=== PATIENT | female | born 1970 | race African-American/Black ===

== ENCOUNTER 2016-11-12 05:01 | Emergency (ER) | payer SELFPAY ==
[~2016-11-12] VITALS: Ht 160 cm; Wt 65.0 kg
[~2016-11-12 05:01] MED LIST: KCL20 PO; LEVEMIR SQ; PIOG45 PO
[2016-11-12 05:03] VITALS: BP 132/68; PULSE 94; RESP 18; TEMP 98.7; O2SAT 100
--- NOTE | 2016-11-12 05:26 | PD ---
HPI Chief Complaint: Flank/Kidney Pain Time Seen by Provider: 05:13 Travel History International Travel<30 days: No Contact w/Intl Traveler<30days: No Traveled to known affect area: No History of Present Illness HPI 46-year-old female came to the emergency room with history of left sided abdominal pain. She points all the way from the left upper quadrant going down to the left lower quadrant as her area of pain. She says it's been going on for past 4 days. No h/o nausea and vomiting. No history of fever or chills. She also complains of some hematuria. She is a had pain like this in the past. No history of kidney stones in the past. She says that she tried to tough it out but this pain is just not going away. Vital signs were otherwise stable. Patient is a diabetic. [facility] Past Medical History Narrative Medical List of his past medical, surgical, social and family history was reviewed from the nursing note. Hx Anticoagulant Therapy: No Asthma: No Blood Disorders: No Anxiety: No Depression: No Heart Rhythm Problems: No Cancer: No Cardiovascular Problems: No High Cholesterol: No Chemotherapy: No Chest Pain: No Congestive Heart Failure: No COPD: No Cerebrovascular Accident: No Diabetes: Yes Patient Takes Glucophage: No Diminished Hearing: No Endocrine: Yes Immune Disorder: No Musculoskeletal: No Neurologic: No Psychiatric: No Reproductive: No Respiratory: Yes (CHRONIC BRONCHITIS) Thyroid Disease: No ?: Not : 1 Para: 1 Past Surgical History Hysterectomy: No Social History Alcohol Use: No Tobacco Use: Yes (2 PPD) Substance Use: No Allergies-Medications (Allergen,Severity, Reaction): Coded Allergies: No Known Allergies (Verified , 11/12/16) Comments No known drug allergies. Reported Meds & Prescriptions Reported Meds & Active Scripts Active Levemir Inj (Insulin Detemir) 1,000 unit/ 10 ML Vial 10 Units SQ HS Do not mix with any other Insulin. Proair Hfa 8.5 GM Inh (Albuterol Sulfate) 90 Mcg/Act Aer 2 Puff INH Q4-6H PRN 108 mcg/actuation Cipro (Ciprofloxacin HCl) 500 Mg Tab 500 Mg PO BID Narrative Medication List of her home medications reviewed from the nursing note. Review of Systems Except as stated in HPI: all other systems reviewed are Neg Physical Exam Narrative GENERAL: Awake, alert, moderate distress SKIN: Focused skin assessment warm/dry. HEAD: Atraumatic. Normocephalic. EYES: Pupils equal and round. No scleral icterus. No injection or drainage. ENT: No nasal bleeding or discharge. Mucous membranes pink and moist. NECK: Trachea midline. No JVD. CARDIOVASCULAR: Regular rate and rhythm. No murmur appreciated. RESPIRATORY: No accessory muscle use. Clear to auscultation. Breath sounds equal bilaterally. GASTROINTESTINAL: Abdomen soft, non-tender, nondistended. Hepatic and splenic margins not palpable. MUSCULOSKELETAL: No obvious deformities. No clubbing. No cyanosis. No edema. NEUROLOGICAL: Awake and alert. No obvious cranial nerve deficits. Motor grossly within normal limits. Normal speech. PSYCHIATRIC: Appropriate mood and affect; insight and judgment normal. Data Data Last Documented VS Orders Urinalysis - C+S If Indicated (11/12/16 05:21) Ed Urine Pregnancytest Poc (11/12/16 05:21) Complete Blood Count With Diff (11/12/16 05:30) Comprehensive Metabolic Panel (11/12/16 05:30) Ct Abd/Pel W/O Iv Contrast (11/12/16 05:30) Iv Access Insert/Monitor (11/12/16 05:30) Ecg Monitoring (11/12/16 05:30) Oximetry (11/12/16 05:30) Sodium Chlor 0.9% 1000 Ml Inj (Ns 1000 M (11/12/16 05:30) Sodium Chloride 0.9% Flush (Ns Flush) (11/12/16 05:30) Morphine Inj (Morphine Inj) (11/12/16 05:30) Ondansetron Inj (Zofran Inj) (11/12/16 05:30) Urine Culture (11/12/16 06:36) Levofloxacin (Levaquin) (11/12/16 07:45) Insulin Human Regular Inj (Novolin R Inj (11/12/16 07:45) Labs Laboratory Tests Test 11/12/16 06:36 Urine Color LIGHT-YELLOW Urine Turbidity HAZY Urine pH 6.0 Urine Specific [place] 1.016 Urine Protein TRACE mg/dL Urine Glucose (UA) 1000 mg/dL Urine Ketones TRACE mg/dL Urine Occult Blood MOD Urine Nitrite POS Urine Bilirubin NEG Urine Urobilinogen LESS THAN 2.0 MG/DL Urine Leukocyte Esterase LARGE Urine RBC 30 /hpf Urine WBC /hpf Urine WBC Clumps OCC Urine Bacteria MANY /hpf Microscopic Urinalysis Comment CULTURE INDICATED MDM Medical Decision Making Medical Screen Exam Complete: Yes Emergency Medical Condition: Yes Medical Record Reviewed: Yes Differential Diagnosis Ureteral colic, vital nephritis, diverticulitis, musculoskeletal pain Narrative Course 7 AM blood test results came back and they're within normal limit. Patient was medicated for pain. She is awaiting for a CAT scan to be done and resulted. Case was signed over to the oncoming ER physician. Procedures EKG Prior to Arrival: No Scripts Insulin Detemir Inj (Levemir Inj)1,000 unit/ 10 ML Vial10 Units SQ HS #10 VIAL Ref 0 Do not mix with any other Insulin. Prov:Jovanni Gavin MD 11/12/16 Albuterol 8.5 GM Inh (Proair Hfa 8.5 GM Inh)90 Mcg/Act Aer2 Puff INH Q4-6H PRN ( SHORTNESS OF BREATH) #1 INHALER 108 mcg/actuation Prov:Jovanni Gavin MD 11/12/16 Ciprofloxacin (Cipro)500 Mg [id number] Mg PO BID #20 TAB Ref 0 Prov:Jovanni Gavin MD 11/12/16 Yuval Bruno MD Nov 12, 2016 05:26 Blood Urea Nitrogen 18 MG/DL Creatinine 0.76 MG/DL Estimat Glomerular Filtration 100 ML/MIN Rate Random Glucose 308 MG/DL Calcium Level 8.8 MG/DL Total Bilirubin 0.4 MG/DL Aspartate Amino Transf 17 U/L (AST/SGOT) Alanine Aminotransferase 21 U/L (ALT/SGPT) Alkaline Phosphatase 95 U/L Total Protein 7.0 GM/DL Albumin 2.9 GM/DL Urine Color LIGHT-YELLOW Urine Turbidity HAZY Urine pH 6.0 Urine Specific [place] 1.016 Urine Protein TRACE mg/dL Urine Glucose (UA) 1000 mg/dL Urine Ketones TRACE mg/dL Urine Occult Blood MOD Urine Nitrite POS Urine Bilirubin NEG Urine Urobilinogen LESS THAN 2.0 MG/DL Urine Leukocyte Esterase LARGE Urine RBC 30 /hpf Urine WBC /hpf Urine WBC Clumps OCC Urine Bacteria MANY /hpf Microscopic Urinalysis Comment CULTURE INDICATED MDM Medical Decision Making Medical Screen Exam Complete: Yes Emergency Medical Condition: Yes Medical Record Reviewed: Yes Differential Diagnosis Ureteral colic, vital nephritis, diverticulitis, musculoskeletal pain Narrative Course 7 AM blood test results came back and they're within normal limit. Patient was medicated for pain. She is awaiting for a CAT scan to be done and resulted. Case was signed over to the oncoming ER physician. Procedures EKG Prior to Arrival: No Scripts Insulin Detemir Inj (Levemir Inj)1,000 unit/ 10 ML Vial10 Units SQ HS #10 VIAL Ref 0 Do not mix with any other Insulin. Prov:Jovanni Gavin MD 11/12/16 Albuterol 8.5 GM Inh (Proair Hfa 8.5 GM Inh)90 Mcg/Act Aer2 Puff INH Q4-6H PRN ( SHORTNESS OF BREATH) #1 INHALER 108 mcg/actuation Prov:Jovanni Gavin MD 11/12/16 Ciprofloxacin (Cipro)500 Mg [id number] Mg PO BID #20 TAB Ref 0 Prov:Jovanni Gavin MD 11/12/16 Yuval Bruno MD Nov 12, 2016 05:26
[2016-11-12] MEDS ORDERED: ONDANSETRON HCL 4 MG/2 ML VIAL IV PUSH ONE (05:30)
[2016-11-12] MEDS ORDERED: MORPHINE SULFATE 4 MG/ML INJ IV PUSH ONE (05:30)
[2016-11-12] MEDS ORDERED: SODIUM CHLOR 0.9% 1000 ML INJ 1,000 ML IV SCH (05:30)
[2016-11-12] MEDS ORDERED: SODIUM CHLORIDE 0.9% FLUSH 10 ML FLUSH IV FLUSH PRN (05:30)
[2016-11-12 05:50] LABS: BASOPHIL # 0.1 TH/MM3 (0-0.2); BASOPHIL % 0.7 % (0.0-2.0); EOSINOPHIL # 0.1 TH/MM3 (0-0.4); EOSINOPHIL % 0.9 % (0.0-4.0); HEMATOCRIT 39.1 % (35.0-46.0); HEMO FLAGS DIFF FINAL; LYMPH % 27.4 % (9.0-44.0); MEAN CELL VOLUME 88.4 FL (80.0-100.0); MEAN CORPUSCULAR HEMOGLOBIN 31.6 PG (27.0-34.0); MEAN CORPUSCULAR HGB CONC 35.8 % (32.0-36.0); MONO % 6.4 % (0.0-8.0); NEUT % 64.6 % (16.0-70.0); PLATELET COUNT 332 TH/MM3 (150-450); RED BLOOD COUNT 4.42 MIL/MM3 (4.00-5.30); RED CELL DISTRIBUTION WIDTH 12.7 % (11.6-17.2); WHITE BLOOD COUNT 10.9 TH/MM3 (4.0-11.0)
[2016-11-12 06:09] LABS: ALKALINE PHOSPHATASE 95 U/L (45-117); TOTAL BILIRUBIN ADULT 0.4 MG/DL (0.2-1.0)
[2016-11-12 06:11] LABS: ALT (GPT) 21 U/L (10-53); ANION GAP 8 MEQ/L (5-15); AST (GOT) 17 U/L (15-37); BICARBONATE 25.4 MEQ/L (21.0-32.0); BLOOD UREA NITROGEN 18 MG/DL (7-18); CHLORIDE 102 MEQ/L (98-107); GLOMERULAR FILTRATION RATE 100 ML/MIN (>89); SODIUM (NA) 135 MEQ/L (136-145)
[2016-11-12 06:12] LABS: POTASSIUM 4.6 MEQ/L (3.5-5.1)
[2016-11-12 06:45] VITALS: O2SAT 98
[2016-11-12 07:11] LABS: BACTERIA, URINE MANY /hpf; BLOOD, URINE MOD (NEG); COMMENT (UR) CULTURE INDICATED; CULTURE IF INDICATED CULTURE INDICATED; GLUCOSE,URINE 1000 mg/dL (NEG); KETONE, URINE TRACE mg/dL (NEG); URINE COLOR LIGHT-YELLOW (YELLW/STRAW)
[2016-11-12 07:13] LABS: NITRITE,URINE POS (NEG)
--- NOTE | 2016-11-12 07:14 | RADRPT ---
EXAM DATE/TIME: 11/12/2016 06:49 [facility] COMPARISON: No previous studies available for comparison. INDICATIONS : Left side abdominal pain. ORAL CONTRAST: No oral contrast ingested. RADIATION DOSE: 9.96 CTDIvol (mGy) MEDICAL HISTORY : Diabetes. SURGICAL HISTORY : None. ENCOUNTER: Initial ACUITY: 4 - 6 days PAIN SCALE: 10/10 LOCATION: Left abdomen. TECHNIQUE: Volumetric scanning of the abdomen and pelvis was performed. Using automated exposure control and ad justment of the mA and/or kV according to patient size, radiation dose was kept as low as reasonably achievable to obtain optimal diagnostic quality images. DICOM format image data is available electro nically for review and comparison. The lack of IV contrast limits the diagnosis for certain organ pa thology. FINDINGS: LOWER LUNGS: The visualized lower lungs are clear. LIVER: Homogeneous density without lesion. There is no dilation of the biliary tree. No calcified gallston es. SPLEEN: Normal size without lesion. PANCREAS: Within normal limits. KIDNEYS: Normal in size and shape. There is some mild prominence of the left collecting system compared to the right. However, no definite mechanical obstruction is seen. No calcified left renal stones are seen. The right kidney is unremarkable. There is no evidence of hydronephrosis. The ureters are nondilated .. ADRENAL GLANDS: Within normal limits. VASCULAR: There is no aortic aneurysm. BOWEL/MESENTERY: The stomach, small bowel, and colon demonstrate no acute abnormality. There is no free intraperitone al air or fluid. The appendix is unremarkable. There is no inflammatory changes. There is stool in th e colon. ABDOMINAL WALL: Within normal limits. RETROPERITONEUM: There is no lymphadenopathy. BLADDER: No wall thickening or mass. REPRODUCTIVE: Uterus is mildly prominent. There appears to be 1.5 cm cyst associated with the right ovary. No free fluid is seen in the cul-de-sac. INGUINAL: There is no lymphadenopathy or hernia. MUSCULOSKELETAL: Within normal limits for patient age. CONCLUSION: 1. No evidence of calcified renal stones or hydronephrosis. There is some mild prominence of the left upper collecting system compared to the right. This is nonspecific. 2. Small 1.5 cm cyst associated with the right ovary. No free fluid in the cul-de-sac.. 3. Otherwise, unremarkable exam for patient's age. Todd Rowan MD on November 12, 2016 at 7:03 Board Certified Radiologist. This report was verified electronically.
[2016-11-12] MEDS ORDERED: ALBUAER3 INH (07:35)
[2016-11-12] MEDS ORDERED: CIPR-9 PO (07:35)
[2016-11-12] MEDS ORDERED: LEVEMIR SQ (07:36)
--- NOTE | 2016-11-12 07:36 | PD ---
Physical Exam Narrative Patient was seen by ED physician and signed out to me. Patient has history of hypertension, diabetes, asthma. Patient states that she ran out of all medications for the past few months. Data Data Last Documented VS Vital Signs Date Time Temp Pulse Resp B/P Pulse Ox O2 Delivery O2 Flow Rate FiO2 11/12/16 06:45 98 Room Air 11/12/16 05:06 18 11/12/16 05:03 98.7 94 132/68 Orders Urinalysis - C+S If Indicated (11/12/16 05:21) Ed Urine Pregnancytest Poc (11/12/16 05:21) Complete Blood Count With Diff (11/12/16 05:30) Comprehensive Metabolic Panel (11/12/16 05:30) Ct Abd/Pel W/O Iv Contrast (11/12/16 05:30) Iv Access Insert/Monitor (11/12/16 05:30) Ecg Monitoring (11/12/16 05:30) Oximetry (11/12/16 05:30) Sodium Chlor 0.9% 1000 Ml Inj (Ns 1000 M (11/12/16 05:30) Sodium Chloride 0.9% Flush (Ns Flush) (11/12/16 05:30) Morphine Inj (Morphine Inj) (11/12/16 05:30) Ondansetron Inj (Zofran Inj) (11/12/16 05:30) Urine Culture (11/12/16 06:36) Labs Laboratory Tests Test 11/12/16 11/12/16 05:39 06:36 White Blood Count 10.9 TH/MM3 Red Blood Count 4.42 MIL/MM3 Hemoglobin 14.0 GM/DL Hematocrit 39.1 % Mean Corpuscular Volume 88.4 FL Mean Corpuscular Hemoglobin 31.6 PG Mean Corpuscular Hemoglobin 35.8 % Concent Red Cell Distribution Width 12.7 % Platelet Count 332 TH/MM3 Mean Platelet Volume 8.2 FL Neutrophils (%) (Auto) 64.6 % Lymphocytes (%) (Auto) 27.4 % Monocytes (%) (Auto) 6.4 % Eosinophils (%) (Auto) 0.9 % Basophils (%) (Auto) 0.7 % Neutrophils # (Auto) 7.0 TH/MM3 Lymphocytes # (Auto) 3.0 TH/MM3 Monocytes # (Auto) 0.7 TH/MM3 Eosinophils # (Auto) 0.1 TH/MM3 Basophils # (Auto) 0.1 TH/MM3 CBC Comment DIFF FINAL Differential Comment Sodium Level 135 MEQ/L Potassium Level 4.6 MEQ/L Chloride Level 102 MEQ/L Carbon Dioxide Level 25.4 MEQ/L Anion Gap 8 MEQ/L Blood Urea Nitrogen 18 MG/DL Creatinine 0.76 MG/DL Estimat Glomerular Filtration 100 ML/MIN Rate Random Glucose 308 MG/DL Calcium Level 8.8 MG/DL Total Bilirubin 0.4 MG/DL Aspartate Amino Transf 17 U/L (AST/SGOT) Alanine Aminotransferase 21 U/L (ALT/SGPT) Alkaline Phosphatase 95 U/L Total Protein 7.0 GM/DL Albumin 2.9 GM/DL Urine Color LIGHT-YELLOW Urine Turbidity HAZY Urine pH 6.0 Urine Specific [place] 1.016 Urine Protein TRACE mg/dL Urine Glucose (UA) 1000 mg/dL Urine Ketones TRACE mg/dL Urine Occult Blood MOD Urine Nitrite POS Urine Bilirubin NEG Urine Urobilinogen LESS THAN 2.0 MG/DL Urine Leukocyte Esterase LARGE Urine RBC 30 /hpf Urine WBC /hpf Urine WBC Clumps OCC Urine Bacteria MANY /hpf Microscopic Urinalysis Comment CULTURE INDICATED MDM Supervised Visit with SARITA: No Interpretation(s) Last Impressions Abdomen/Pelvis CT 11/12/16 0530 Signed Impressions: Service Date/Time: Saturday, November 12, 2016 06:49 - CONCLUSION: 1. No evidence of calcified renal stones or hydronephrosis. There is some mild prominence of the left upper collecting system compared to the right. This is nonspecific. 2. Small 1.5 cm cyst associated with the right ovary. No free fluid in the cul-de-sac.. 3. Otherwise, unremarkable exam for patient's age. Todd Rowan MD 7:25 AM. CBC within normal limit. CMP within normal limit. UA positive for WBC and bacteria. Narrative Course Patient was seen by ED physician and signed out to me. Patient has pyelonephritis. Patient ran out of her medications for hypertension, diabetes, asthma. Patient has hyperglycemia today. Novolin R 5 units subcutaneous given. Levaquin 750 mg by mouth given. Diagnosis Primary Impression: Pyelonephritis Additional Impression: Hyperglycemia Patient Instructions: General Instructions Additional Instruction: Advised patient to continue blood sugar checked and blood pressure check at home. Take medications as directed. Follow-up with local physician. Return if persistent problem or worse. Med/Other Pt SpecificInfo: Prescription(s) given Scripts Insulin Detemir Inj (Levemir Inj)1,000 unit/ 10 ML Vial10 Units SQ HS #10 VIAL Ref 0 Do not mix with any other Insulin. Prov:Jovanni Gavin MD 11/12/16 Albuterol 8.5 GM Inh (Proair Hfa 8.5 GM Inh)90 Mcg/Act Aer2 Puff INH Q4-6H PRN ( SHORTNESS OF BREATH) #1 INHALER 108 mcg/actuation Prov:Jovanni Gavin MD 11/12/16 Ciprofloxacin (Cipro)500 Mg Kas893 Mg PO BID #20 TAB Ref 0 Prov:Jovanni Gavin MD 11/12/16 Disposition: 01 DISCHARGE HOME Condition: Stable Jovanni Gavin MD Nov 12, 2016 07:36
[2016-11-12] MEDS ORDERED: LEVOFLOXACIN 750 MG TAB PO ONE (07:45)
[2016-11-12] MEDS ORDERED: INSULIN HUMAN REGULAR 1,000 UNITS/10 ML VIAL SQ ONE (07:45)
== END 2016-11-12 08:04 | disposition home or self-care (01) ==
LOC: NEPE 05:01
DX: N12 Tubulo-interstitial nephritis, not specified as acute or chronic (principal); B96.20 Unspecified Escherichia coli [E. coli] as the cause of diseases classified elsewhere; E11.65 Type 2 diabetes mellitus with hyperglycemia; R31.9 Hematuria, unspecified; F17.200 Nicotine dependence, unspecified, uncomplicated; Z79.4 Long term (current) use of insulin; Z87.09 Personal history of other diseases of the respiratory system
CPT/HCPCS: 74176; 80053; 81001; 84703; 85025; 87077; 87086; 87186; 96372; 96374; 99285; J1815; J2270; J2405; J7030

== ENCOUNTER 2016-12-22 06:39 | Emergency (ER) | payer SELFPAY ==
[~2016-12-22] VITALS: Ht 160 cm; Wt 65.0 kg
[~2016-12-22 06:39] MED LIST changes: +ALBUAER3 INH; +CIPR-9 PO; -KCL20 PO; -PIOG45 PO
[2016-12-22 06:42] VITALS: BP 135/73; PULSE 106; RESP 18; TEMP 99.5; O2SAT 97
[2016-12-22 07:00] VITALS: O2SAT 100
--- NOTE | 2016-12-22 07:21 | PD ---
HPI Chief Complaint: Fever Time Seen by Provider: 07:02 Travel History International Travel<30 days: No Contact w/Intl Traveler<30days: No Traveled to known affect area: No History of Present Illness HPI 46-year-old female came to the emergency room with history of cough, headache, chest pain and abdominal pain every time she coughs hard for past 5 days. Patient has history of diabetes and COPD. She is a smoker. She has not been using her inhaler for the cough. She was vomiting in the beginning of her sickness but her last vomiting was 2 days ago. No history of diarrhea. She had a temperature of 99.5 and slightly tachycardic. No known sick contacts. The chest pain and abdominal pain are only there when she coughs hard. PFSH Past Medical History Narrative Medical List of her past medical, surgical, social and family history was reviewed from the nursing note. Hx Anticoagulant Therapy: No Asthma: Yes Blood Disorders: No Anxiety: No Depression: No Heart Rhythm Problems: No Cancer: No Cardiovascular Problems: No High Cholesterol: No Chemotherapy: No Chest Pain: No Congestive Heart Failure: No COPD: No Cerebrovascular Accident: No Diabetes: Yes Patient Takes Glucophage: No Diminished Hearing: No Endocrine: Yes Immune Disorder: No Musculoskeletal: No Neurologic: No Psychiatric: No Reproductive: No Respiratory: Yes (CHRONIC BRONCHITIS) Thyroid Disease: No Tetanus Vaccination: > 5 Years Influenza Vaccination: Yes ?: Not LMP: 11/24/16 : 1 Para: 1 Past Surgical History Surgical History: No Previous Surgery Hysterectomy: No Social History Alcohol Use: Yes (OCCASSIONALLY) Tobacco Use: Yes (OCCASSIONALLY) Substance Use: No Allergies-Medications (Allergen,Severity, Reaction): Coded Allergies: No Known Allergies (Verified , 12/22/16) Comments No known allergies Reported Meds & Prescriptions Reported Meds & Active Scripts Active Cipro (Ciprofloxacin HCl) 500 Mg Tab 500 Mg PO BID Macrobid (Nitrofurantoin Monoh/Nitrofur Macro) 100 Mg Cap 100 Mg PO BID 7 Days Ventolin Hfa 18 GM Inh (Albuterol Sulfate) 90 Mcg/Act Aer 2 Puff INH Q4-6H PRN Narrative Medication List of her past medical, surgical, social and family history was reviewed from the nursing note. Review of Systems Except as stated in HPI: all other systems reviewed are Neg Physical Exam Narrative GENERAL: Awake, alert, moderate distress SKIN: Focused skin assessment warm/dry. HEAD: Atraumatic. Normocephalic. EYES: Pupils equal and round. No scleral icterus. No injection or drainage. ENT: No nasal bleeding or discharge. Mucous membranes pink and moist. NECK: Trachea midline. No JVD. CARDIOVASCULAR: Regular rate and rhythm. No murmur appreciated. RESPIRATORY: Coarse breath sounds bilaterally with expiratory wheeze GASTROINTESTINAL: Abdomen soft, non-tender, nondistended. Hepatic and splenic margins not palpable. MUSCULOSKELETAL: No obvious deformities. No clubbing. No cyanosis. No edema. NEUROLOGICAL: Awake and alert. No obvious cranial nerve deficits. Motor grossly within normal limits. Normal speech. PSYCHIATRIC: Appropriate mood and affect; insight and judgment normal. Data Data Last Documented VS Vital Signs Date Time Temp Pulse Resp B/P Pulse Ox O2 Delivery O2 Flow Rate FiO2 12/22/16 07:00 100 Room Air 12/22/16 06:42 99.5 106 18 135/73 Orders Complete Blood Count With Diff (12/22/16 07:23) Comprehensive Metabolic Panel (12/22/16 07:23) Lactic Acid Sepsis Protocol (12/22/16 07:23) Urinalysis - C+S If Indicated (12/22/16 07:23) Blood Culture (12/22/16 07:23) Chest, Single Ap (12/22/16 07:23) Blood Glucose (12/22/16 07:23) Ecg Monitoring (12/22/16 07:23) Iv Access Insert/Monitor (12/22/16 07:23) Oximetry (12/22/16 07:23) Oxygen Administration (12/22/16 07:23) Sodium Chlor 0.9% 1000 Ml Inj (Ns 1000 M (12/22/16 07:23) Sodium Chlor 0.9% 1000 Ml Inj (Ns 1000 M (12/22/16 07:23) Sodium Chlor 0.9% 1000 Ml Inj (Ns 1000 M (12/22/16 07:23) Albuterol-Ipratropium Neb (Duoneb Neb) (12/22/16 07:30) Ketorolac Inj (Toradol Inj) (12/22/16 07:30) Urine Culture (12/22/16 08:50) Labs Laboratory Tests Test 12/22/16 12/22/16 07:40 08:50 White Blood Count 7.5 TH/MM3 Red Blood Count 4.22 MIL/MM3 Hemoglobin 12.7 GM/DL Hematocrit 37.6 % Mean Corpuscular Volume 89.1 FL Mean Corpuscular Hemoglobin 30.1 PG Mean Corpuscular Hemoglobin 33.8 % Concent Red Cell Distribution Width 12.7 % Platelet Count 231 TH/MM3 Mean Platelet Volume 8.4 FL Neutrophils (%) (Auto) 71.0 % Lymphocytes (%) (Auto) 22.0 % Monocytes (%) (Auto) 6.6 % Eosinophils (%) (Auto) 0.1 % Basophils (%) (Auto) 0.3 % Neutrophils # (Auto) 5.3 TH/MM3 Lymphocytes # (Auto) 1.7 TH/MM3 Monocytes # (Auto) 0.5 TH/MM3 Eosinophils # (Auto) 0.0 TH/MM3 Basophils # (Auto) 0.0 TH/MM3 CBC Comment DIFF FINAL Differential Comment Sodium Level 133 MEQ/L Potassium Level 3.6 MEQ/L Chloride Level 98 MEQ/L Carbon Dioxide Level 23.6 MEQ/L Anion Gap 11 MEQ/L Blood Urea Nitrogen 8 MG/DL Creatinine 0.67 MG/DL Estimat Glomerular Filtration 115 ML/MIN Rate Random Glucose 303 MG/DL Lactic Acid Level 0.9 mmol/L Calcium Level 7.8 MG/DL Total Bilirubin 0.4 MG/DL Aspartate Amino Transf 12 U/L (AST/SGOT) Alanine Aminotransferase 18 U/L (ALT/SGPT) Alkaline Phosphatase 76 U/L Total Protein 6.5 GM/DL Albumin 2.7 GM/DL Urine Color LIGHT-YELLOW Urine Turbidity HAZY Urine pH 6.0 Urine Specific [place] 1.010 Urine Protein 30 mg/dL Urine Glucose (UA) 1000 mg/dL Urine Ketones 40 mg/dL Urine Occult Blood MOD Urine Nitrite NEG Urine Bilirubin NEG Urine Urobilinogen LESS THAN 2.0 MG/DL Urine Leukocyte Esterase SMALL Urine RBC 7 /hpf Urine WBC 4 /hpf Urine Squamous Epithelial 3 /hpf Cells Urine Bacteria RARE /hpf Urine Mucus FEW /lpf Microscopic Urinalysis Comment CATH-CULTURE IND MDM Medical Decision Making Medical Screen Exam Complete: Yes Emergency Medical Condition: Yes Medical Record Reviewed: Yes Differential Diagnosis Viral illness, COPD exacerbation, sepsis Narrative Course 8:49 AM patient was given 2 doses of DuoNeb. Blood test results are back. She has some hyperglycemia but otherwise they're within normal limit. Patient has not given us a UA yet but I'm ready to discharge her at this point. She will go home with a prescription for albuterol inhaler. She will be given recommendations to stop smoking. 9:19 AM UA suggestive of UTI. She is given a dose of Macrobid here and a prescription to go home with. Procedures EKG Prior to Arrival: No Diagnosis Primary Impression: Viral illness Additional Impressions: Acute exacerbation of chronic obstructive pulmonary disease (COPD) Hyperglycemia Needs smoking cessation education UTI (urinary tract infection) Qualified Code: N39.0 - Urinary tract infection without hematuria, site unspecified Referrals: Primary Care Physician Additional Instructions: Up with her primary care next couple days. Please return to the ER if the condition worsens or any other new concerns. Use the albuterol inhaler 2 puffs every 4 hours till the symptoms subside. You needs to quit smoking in order to feel better especially since she has COPD. Med/Other Pt SpecificInfo: Prescription(s) given Scripts Ciprofloxacin (Cipro)500 Mg [id number] Mg PO BID #20 TAB Ref 0 Prov:Yuval Bruno MD 12/22/16 Nitrofurantoin Monohydrate Macrocrystals (Macrobid)100 Mg Grr850 Mg PO BID 7 Days Ref 0 Prov:Yuval Bruno MD 12/22/16 Albuterol 18 GM Inh (Ventolin Hfa 18 GM Inh)90 Mcg/Act Aer2 Puff INH Q4-6H PRN ( SHORTNESS OF BREATH) #1 INHALER Ref 0 Prov:Yuval Bruno MD 12/22/16 Disposition: 01 DISCHARGE HOME Condition: Stable Yuval Bruno MD Dec 22, 2016 07:21
[2016-12-22] MEDS ORDERED: SODIUM CHLOR 0.9% 1000 ML INJ 1,000 ML IV ONE ×2 (07:23)
[2016-12-22] MEDS ORDERED: SODIUM CHLOR 0.9% 1000 ML INJ 100 ML IV ONE (07:23)
[2016-12-22] MEDS ORDERED: KETOROLAC TROMETHAMINE 30 MG/ML (IVP) VIAL IV PUSH ONE (07:30)
[2016-12-22 07:50] LABS: AUTOMATED NEUTROPHIL # 5.3 TH/MM3 (1.8-7.7); BASOPHIL % 0.3 % (0.0-2.0); EOSINOPHIL % 0.1 % (0.0-4.0); HEMATOCRIT 37.6 % (35.0-46.0); HEMO FLAGS DIFF FINAL; LYMPHOCYTE # 1.7 TH/MM3 (1.0-4.8); MEAN CELL VOLUME 89.1 FL (80.0-100.0); MEAN CORPUSCULAR HEMOGLOBIN 30.1 PG (27.0-34.0); MEAN CORPUSCULAR HGB CONC 33.8 % (32.0-36.0); MONO % 6.6 % (0.0-8.0); PLATELET COUNT 231 TH/MM3 (150-450); RED BLOOD COUNT 4.22 MIL/MM3 (4.00-5.30); RED CELL DISTRIBUTION WIDTH 12.7 % (11.6-17.2); WHITE BLOOD COUNT 7.5 TH/MM3 (4.0-11.0)
[2016-12-22] MEDS: RESP: ALBUTEROL 2.5 MG/IPRATROPIUM 0.5 MG NEB (SCH) INH (07:57)
--- NOTE | 2016-12-22 08:01 | RADRPT ---
EXAM DATE/TIME: 12/22/2016 07:46 [facility] COMPARISON: No previous studies available for comparison. INDICATIONS : Fever. MEDICAL HISTORY : Asthma SURGICAL HISTORY : None. ENCOUNTER: Initial ACUITY: 1 day PAIN SCORE: 0/10 LOCATION: Bilateral chest FINDINGS: Portable AP view of the chest demonstrates a normal-sized cardiac silhouette. No effusion, consolidat ion, or pneumothorax is visualized. The bones and soft tissues demonstrate no acute abnormality. CONCLUSION: No acute cardiopulmonary abnormality is identified. Shakir Walker MD on December 22, 2016 at 7:59 Board Certified Radiologist. This report was verified electronically.
[2016-12-22 08:11] LABS: ALKALINE PHOSPHATASE 76 U/L (45-117); TOTAL BILIRUBIN ADULT 0.4 MG/DL (0.2-1.0)
[2016-12-22 08:16] LABS: ALT (GPT) 18 U/L (10-53); ANION GAP 11 MEQ/L (5-15); AST (GOT) 12 U/L (15-37); BICARBONATE 23.6 MEQ/L (21.0-32.0); BLOOD UREA NITROGEN 8 MG/DL (7-18); CHLORIDE 98 MEQ/L (98-107); GLOMERULAR FILTRATION RATE 115 ML/MIN (>89); POTASSIUM 3.6 MEQ/L (3.5-5.1); SODIUM (NA) 133 MEQ/L (136-145)
[2016-12-22] MEDS ORDERED: VENTAER INH (08:52)
[2016-12-22 09:11] LABS: BACTERIA, URINE RARE /hpf; BLOOD, URINE MOD (NEG); COMMENT (UR) CATH-CULTURE IND; CULTURE IF INDICATED CATH CULTURE IND; GLUCOSE,URINE 1000 mg/dL (NEG); KETONE, URINE 40 mg/dL (NEG); MUCUS URINE FEW /lpf (OCC); NITRITE,URINE NEG (NEG); SQUAMOUS EPITHELIAL CELL URINE 3 /hpf (0-5); URINE COLOR LIGHT-YELLOW (YELLW/STRAW)
[2016-12-22] MEDS ORDERED: MACR100C2 PO (09:19)
[2016-12-22] MEDS ORDERED: CIPR-9 PO (09:25)
== END 2016-12-22 09:34 | disposition home or self-care (01) ==
LOC: NEPE 06:39
DX: B34.9 Viral infection, unspecified (principal); J44.1 Chronic obstructive pulmonary disease with (acute) exacerbation; E11.65 Type 2 diabetes mellitus with hyperglycemia; N39.0 Urinary tract infection, site not specified; F17.210 Nicotine dependence, cigarettes, uncomplicated
CPT/HCPCS: 71010; 80053; 81001; 83605; 85025; 87040; 87086; 94640; 94664; 96361; 96374; 99284; J1885; J7030

== ENCOUNTER 2017-09-30 15:13 | Emergency (ER) | payer SELFPAY ==
[~2017-09-30] VITALS: Ht 160 cm; Wt 65.0 kg
[~2017-09-30 15:13] MED LIST changes: -ALBUAER3 INH; -LEVEMIR SQ; +MACR100C2 PO; +VENTAER INH
[2017-09-30 15:35] VITALS: BP 132/68; PULSE 115; RESP 18; TEMP 100; O2SAT 98
[2017-09-30] MEDS ORDERED: SODIUM CHLOR 0.9% 1000 ML INJ 1,000 ML IV SCH ×2 (15:51)
[2017-09-30] MEDS ORDERED: METOCLOPRAMIDE HCL 10 MG/2 ML VIAL IV PUSH ONE (16:00)
--- NOTE | 2017-09-30 16:02 | PD ---
HPI Chief Complaint: General Weakness Time Seen by Provider: 15:45 Travel History International Travel<30 days: No Contact w/Intl Traveler<30days: No Traveled to known affect area: No History of Present Illness HPI 47-year-old female history of diabetes and hypertension presents for evaluation. For 1 week she has had generalized weakness, nausea and vomiting, dysuria, flank pain. Symptoms are moderate, no aggravating or alleviating factors. She reports that she has not been on insulin for over a year secondary to lack of funds. She endorses chills and myalgias. No other complaints at this time. PFSH Past Medical History Hx Anticoagulant Therapy: No Asthma: Yes Blood Disorders: No Anxiety: No Depression: No Heart Rhythm Problems: No Cancer: No Cardiovascular Problems: No High Cholesterol: No Chemotherapy: No Chest Pain: No Congestive Heart Failure: No COPD: No Cerebrovascular Accident: No Diabetes: Yes Patient Takes Glucophage: No Diminished Hearing: No Endocrine: Yes Hypertension: Yes Immune Disorder: No Musculoskeletal: No Neurologic: No Psychiatric: No Reproductive: No Respiratory: Yes (CHRONIC BRONCHITIS) Thyroid Disease: No ?: Not : 1 Para: 1 Past Surgical History Abdominal Surgery: Yes (TUMOR ) Section: Yes Social History Alcohol Use: Yes (OCCASSIONALLY) Tobacco Use: Yes (OCCASSIONALLY) Substance Use: No Allergies-Medications (Allergen,Severity, Reaction): Coded Allergies: No Known Allergies (Verified , 12/22/16) Reported Meds & Prescriptions Reported Meds & Active Scripts Active Zofran Odt (Ondansetron Odt) 4 Mg Tab 4 Mg SL Q6HR PRN Bactrim DS (Sulfamethoxazole-Trimethoprim) 800-160 Mg Tab 1 Tab PO BID Review of Systems Except as stated in HPI: all other systems reviewed are Neg Physical Exam Narrative GENERAL: Well-developed well-nourished female no acute distress. Febrile and tachycardic. SKIN: Warm and dry. HEAD: Atraumatic. Normocephalic. EYES: Pupils equal and round. No scleral icterus. No injection or drainage. ENT: No nasal bleeding or discharge. Mucous membranes pink and moist. NECK: Trachea midline. No JVD. CARDIOVASCULAR: Regular rate and rhythm. No murmur appreciated. RESPIRATORY: No accessory muscle use. Clear to auscultation. Breath sounds equal bilaterally. GASTROINTESTINAL: Abdomen soft, tender to palpation in the lower quadrants without guarding. MUSCULOSKELETAL: No obvious deformities. No clubbing. No cyanosis. No edema. NEUROLOGICAL: Awake and alert. No obvious cranial nerve deficits. Motor grossly within normal limits. Normal speech. Data Data Last Documented VS Vital Signs Date Time Temp Pulse Resp B/P (MAP) Pulse Ox O2 Delivery O2 Flow Rate FiO2 09/30/17 18:29 91 18 141/66 (91) 98 Room Air 09/30/17 15:35 100.0 Orders Orders Sepsis Workup Initiated (09/30/17 ) Electrocardiogram (09/30/17 15:51) Complete Blood Count With Diff (09/30/17 15:51) Comprehensive Metabolic Panel (09/30/17 15:51) Lactic Acid Sepsis Protocol (09/30/17 15:51) Urinalysis - C+S If Indicated (09/30/17 15:51) Blood Culture (09/30/17 15:51) Chest, Single Ap (09/30/17 15:51) Blood Glucose (09/30/17 15:51) Ecg Monitoring (09/30/17 15:51) Iv Access Insert/Monitor (09/30/17 15:51) Oximetry (09/30/17 15:51) Oxygen Administration (09/30/17 15:51) Ct Abd/Pel W Iv Contrast(Rout) (09/30/17 15:51) Beta Hydroxybutyrate (Acetone) (09/30/17 15:51) Sodium Chlor 0.9% 1000 Ml Inj (Ns 1000 M (09/30/17 15:51) Sodium Chlor 0.9% 1000 Ml Inj (Ns 1000 M (09/30/17 15:51) Metoclopramide Inj (Reglan Inj) (09/30/17 16:00) Iohexol 350 Inj (Omnipaque 350 Inj) (09/30/17 17:46) Urine Culture (09/30/17 17:25) Insulin Human Regular Inj (Novolin R Inj (09/30/17 18:00) Ceftriaxone Inj (Rocephin Inj) (09/30/17 18:00) Ed Discharge Order (09/30/17 18:57) Labs Laboratory Tests Test 09/30/17 16:00 09/30/17 17:25 White Blood Count 8.9 TH/MM3 Red Blood Count 4.06 MIL/MM3 Hemoglobin 12.5 GM/DL Hematocrit 37.1 % Mean Corpuscular Volume 91.5 FL Mean Corpuscular Hemoglobin 30.9 PG Mean Corpuscular Hemoglobin Concent 33.8 % Red Cell Distribution Width 13.1 % Platelet Count 250 TH/MM3 Mean Platelet Volume 7.9 FL Neutrophils (%) (Auto) 85.4 % Lymphocytes (%) (Auto) 8.9 % Monocytes (%) (Auto) 5.1 % Eosinophils (%) (Auto) 0.3 % Basophils (%) (Auto) 0.3 % Neutrophils # (Auto) 7.6 TH/MM3 Lymphocytes # (Auto) 0.8 TH/MM3 Monocytes # (Auto) 0.5 TH/MM3 Eosinophils # (Auto) 0.0 TH/MM3 Basophils # (Auto) 0.0 TH/MM3 CBC Comment DIFF FINAL Differential Comment Blood Urea Nitrogen 7 MG/DL Creatinine 0.69 MG/DL Random Glucose 339 MG/DL Total Protein 6.2 GM/DL Albumin 2.6 GM/DL Calcium Level 8.5 MG/DL Alkaline Phosphatase 91 U/L Aspartate Amino Transf (AST/SGOT) 8 U/L Alanine Aminotransferase (ALT/SGPT) 13 U/L Total Bilirubin 0.7 MG/DL Sodium Level 136 MEQ/L Potassium Level 3.7 MEQ/L Chloride Level 103 MEQ/L Carbon Dioxide Level 24.9 MEQ/L Anion Gap 8 MEQ/L Estimat Glomerular Filtration Rate 111 ML/MIN Lactic Acid Level 1.5 mmol/L B-Hydroxybutyrate 0.18 MMOL/L Urine Color LIGHT-YELLOW Urine Turbidity HAZY Urine pH 6.0 Urine Specific Melvin 1.018 Urine Protein 30 mg/dL Urine Glucose (UA) 1000 mg/dL Urine Ketones TRACE mg/dL Urine Occult Blood MOD Urine Nitrite POS Urine Bilirubin NEG Urine Urobilinogen LESS THAN 2.0 MG/DL Urine Leukocyte Esterase LARGE Urine RBC 7 /hpf Urine WBC /hpf Urine WBC Clumps MANY Urine Squamous Epithelial Cells 2 /hpf Urine Bacteria MANY /hpf Microscopic Urinalysis Comment CATH-CULTURE IND MDM Medical Decision Making Medical Screen Exam Complete: Yes Emergency Medical Condition: Yes Medical Record Reviewed: Yes Differential Diagnosis Sepsis, UTI, dehydration, electrolyte abnormality, diverticulitis, appendicitis , DKA, gastroenteritis Narrative Course The patient was placed on ECG monitoring pulse oximetry. 12-lead EKG obtained. Lab work, chest x-ray, CT abdomen and pelvis, blood cultures ordered. 2 L IV normal saline administered. Reglan administered for nausea. Lab work notable for glucose of 339, urinalysis reveals positive nitrites, innumerable WBCs, consistent with pyelonephritis. The patient will be given IV Rocephin, 5 units insulin. Initially the patient was agreeable to admission. Upon reexamination she reports that she feels much better and would prefer to be treated as an outpatient and possible. Her lab work is reassuring- she has no leukocytosis or metabolic disturbance. She will be given prescriptions for Zofran and Bactrim. I discussed signs and symptoms that would warrant returning to the emergency room. She is stable for discharge. Sepsis Criteria SIRS Criteria (2 or more): Temp > 100.9 or < 96.8, Heart rate over 90 Sepsis Criteria (SIRS+source): Infect source susp/known Criteria Outcome: Meets sepsis criteria Diagnosis Primary Impression: Pyelonephritis Additional Impression: Hyperglycemia Admitting Information Admitting Physician Requests: Admit Additional Instructions: Medication as prescribed. Stay well hydrated and well-nourished. Follow-up with a primary care physician such as at [facility]. Return for any acutely new or worsening symptoms. Med/Other Pt SpecificInfo: Prescription(s) given Scripts Ondansetron Odt (Zofran Odt) 4 Mg Tab 4 MG SL Q6HR Y for Nausea/Vomiting, #30 TAB 0 Refills Prov: Geoffrey Gifford MD 09/30/17 Sulfamethoxazole-Trimethoprim (Bactrim DS) 800-160 Mg Tab 1 TAB PO BID for Infection, #14 TAB 0 Refills Prov: Geoffrey Gifford MD 09/30/17 Disposition: 01 DISCHARGE HOME Condition: Stable Satya Page September 30, 2017 16:02
[2017-09-30 16:12] VITALS: O2SAT 97
[2017-09-30 16:28] LABS: AUTOMATED NEUTROPHIL # 7.6 TH/MM3 (1.8-7.7); BASOPHIL % 0.3 % (0.0-2.0); EOSINOPHIL % 0.3 % (0.0-4.0); HEMATOCRIT 37.1 % (35.0-46.0); HEMOGLOBIN 12.5 GM/DL (11.6-15.3); LYMPH % 8.9 % (9.0-44.0); LYMPHOCYTE # 0.8 TH/MM3 (1.0-4.8); MEAN CELL VOLUME 91.5 FL (80.0-100.0); MEAN CORPUSCULAR HEMOGLOBIN 30.9 PG (27.0-34.0); MEAN CORPUSCULAR HGB CONC 33.8 % (32.0-36.0); MEAN PLATELET VOLUME 7.9 FL (7.0-11.0); MONO % 5.1 % (0.0-8.0); MONOCYTE # 0.5 TH/MM3 (0-0.9); NEUT % 85.4 % (16.0-70.0); PLATELET COUNT 250 TH/MM3 (150-450); RED BLOOD COUNT 4.06 MIL/MM3 (4.00-5.30); RED CELL DISTRIBUTION WIDTH 13.1 % (11.6-17.2); WHITE BLOOD COUNT 8.9 TH/MM3 (4.0-11.0)
--- NOTE | 2017-09-30 16:29 | RADRPT ---
EXAM DATE/TIME: 09/30/2017 16:04 [facility] COMPARISON: No previous studies available for comparison. INDICATIONS : Fever, shortness of breath, and chest pain. MEDICAL HISTORY : Asthma SURGICAL HISTORY : None. ENCOUNTER: Initial ACUITY: 1 week PAIN SCORE: 3/10 LOCATION: chest FINDINGS: A single view of the chest demonstrates the lungs to be symmetrically aerated without evidence of mas s, infiltrate or effusion. Minimal basilar atelectasis. The cardiomediastinal contours are unremarkab le. Osseous structures are intact. CONCLUSION: 1. Minimal basilar atelectasis. No effusion or pneumothorax. Rodrick Duong MD on September 30, 2017 at 16:23 Board Certified Radiologist. This report was verified electronically.
[2017-09-30 16:56] LABS: ALBUMIN 2.6 GM/DL (3.4-5.0); ALKALINE PHOSPHATASE 91 U/L (45-117); ALT (GPT) 13 U/L (10-53); AST (GOT) 8 U/L (15-37); BICARBONATE 24.9 MEQ/L (21.0-32.0); BLOOD UREA NITROGEN 7 MG/DL (7-18); CALCIUM 8.5 MG/DL (8.5-10.1); CHLORIDE 103 MEQ/L (98-107); CREATININE 0.69 MG/DL (0.50-1.00); GLOMERULAR FILTRATION RATE 111 ML/MIN (>89); GLUCOSE,RANDOM 339 MG/DL (74-106); SODIUM (NA) 136 MEQ/L (136-145); TOTAL BILIRUBIN ADULT 0.7 MG/DL (0.2-1.0); TOTAL PROTEIN 6.2 GM/DL (6.4-8.2)
[2017-09-30] MEDS ORDERED: IOHEXOL 350 MG/ML 10 ML VIAL (for RAD DIAG) IVCONTRAST ONE (17:46)
[2017-09-30 17:52] LABS: BACTERIA, URINE MANY /hpf; BILIRUBIN, URINE NEG (NEG); BLOOD, URINE MOD (NEG); GLUCOSE,URINE 1000 mg/dL (NEG); KETONE, URINE TRACE mg/dL (NEG); NITRITE,URINE POS (NEG); SQUAMOUS EPITHELIAL CELL URINE 2 /hpf (0-5); URINE COLOR LIGHT-YELLOW (YELLW/STRAW); URINE LEUKOCYTE ESTERASE LARGE (NEG); WHITE BLOOD CELL CLUMPS MANY
[2017-09-30] MEDS ORDERED: cefTRIAXone INJ 1,000 MG in SODIUM CHLORIDE 0.9% INJ 100 ML IV ONE (18:00)
[2017-09-30] MEDS ORDERED: INSULIN HUMAN REGULAR 1,000 UNITS/10 ML VIAL IV PUSH ONE (18:00)
--- NOTE | 2017-09-30 18:02 | RADRPT ---
EXAM DATE/TIME: 09/30/2017 17:44 [facility] COMPARISON: CT ABDOMEN & PELVIS W/O CONTRAST, November 12, 2016, 6:49. CT ABDOMEN & PELVIS W CONTRAST, February 09, 2016, 5:21. INDICATIONS : Nausea and diarrhea for 1 week IV CONTRAST: 95 cc Omnipaque 350 (iohexol) IV ORAL CONTRAST: No oral contrast ingested. RADIATION DOSE: 7.95 CTDIvol (mGy) MEDICAL HISTORY : Hypertension. Diabetes mellitus type 1. SURGICAL HISTORY : None. ENCOUNTER: Initial ACUITY: 1 day PAIN SCALE: 3/10 LOCATION: diffuse abdomen TECHNIQUE: Volumetric scanning of the abdomen and pelvis was performed. Using automated exposure control and ad justment of the mA and/or kV according to patient size, radiation dose was kept as low as reasonably achievable to obtain optimal diagnostic quality images. DICOM format image data is available electro nically for review and comparison. FINDINGS: LOWER LUNGS: The visualized lower lungs are clear. LIVER: Homogeneous density without lesion. There is no dilation of the biliary tree. No calcified gallston es. SPLEEN: Normal size without lesion. PANCREAS: Within normal limits. KIDNEYS: Normal in size and shape. Chronic stranding of the perirenal fat. This is unchanged. There is no mass , stone or hydronephrosis. ADRENAL GLANDS: Within normal limits. VASCULAR: There is no aortic aneurysm. BOWEL/MESENTERY: The stomach, small bowel, and colon demonstrate no acute abnormality. There is no free intraperitone al air. Trace amount of free fluid adjacent to the tip of the liver. ABDOMINAL WALL: Within normal limits. RETROPERITONEUM: There is no lymphadenopathy. BLADDER: No wall thickening or mass. REPRODUCTIVE: Within normal limits. INGUINAL: There is no lymphadenopathy or hernia. MUSCULOSKELETAL: Within normal limits for patient age. CONCLUSION: 1. No acute abnormality. 2. Trace amount of free fluid adjacent to the tip of the liver. Mahesh Morales Jr., MD on September 30, 2017 at 17:56 Board Certified Radiologist. This report was verified electronically.
[2017-09-30 18:29] VITALS: BP 141/66; PULSE 91; RESP 18; O2SAT 98
[2017-09-30] MEDS ORDERED: BACT800T5 PO (18:56)
[2017-09-30] MEDS ORDERED: ZOFR4TAB3 SL (18:56)
--- NOTE | 2017-10-01 18:32 | EKG ---
Date Performed: 09/30/2017 Time Performed: 16:08:10 PTAGE: 47 years EKG: SINUS TACHYCARDIA ABNORMAL RHYTHM ECG PREVIOUS TRACING : 07/11/2015 09.39 Compared to previous tracing, rate faster DOCTOR: Reji Navas Interpretating Date/Time 10/01/2017 18:30:15
== END 2017-09-30 19:37 | disposition home or self-care (01) ==
LOC: NEPE 15:13
DX: N12 Tubulo-interstitial nephritis, not specified as acute or chronic (principal); E11.65 Type 2 diabetes mellitus with hyperglycemia
CPT/HCPCS: 71045; 74177; 80053; 81001; 82010; 83605; 85025; 87040; 87077; 87086; 87186; 93005; 96361; 96365; 96375; 99285; J0696; J1815; J2765; J7030; Q9967